=== PATIENT | female | born 1945 | race Caucasian/White ===

== ENCOUNTER → 2016-12-01 | Outpatient (CLI) | payer OTHER ==
[~2016-12-01] MED LIST: METH750T2 PO; MOBI15TA PO; SYNT88TA PO
[2016-12-01 09:48] LABS: HEMATOCRIT 37.6 % (35.0-46.0); MEAN CELL VOLUME 89.2 FL (80.0-100.0); MEAN CORPUSCULAR HEMOGLOBIN 30.2 PG (27.0-34.0); MEAN CORPUSCULAR HGB CONC 33.8 % (32.0-36.0); PLATELET COUNT 223 TH/MM3 (150-450); RED BLOOD COUNT 4.21 MIL/MM3 (4.00-5.30); RED CELL DISTRIBUTION WIDTH 14.2 % (11.6-17.2); REVIEW FLAG FINAL; WHITE BLOOD COUNT 6.4 TH/MM3 (4.0-11.0)
[2016-12-01 09:58] LABS: BICARBONATE 29.9 MEQ/L (21.0-32.0); POTASSIUM 3.8 MEQ/L (3.5-5.1)
== END ==
LOC: CLAB 08:52
PROVIDERS: ATTEND Family Medicine
DX: R55 Syncope and collapse (principal)
CPT/HCPCS: 36415; 80048; 85027

== ENCOUNTER → 2016-12-01 | Outpatient (CLI) | payer OTHER ==
--- NOTE | 2016-12-02 23:24 | HM ---
Date Performed: 12/01/2016 Time Performed: 07:42:00 HOOKUP DATE: 12/01/16 07:42:00 AM Tue ANALYSIS START TIME: 12/01/2016 7:47:00 AM ANALYSIS END TIME: 12/02/2016 7:30:11 AM PATIENT AGE: 71 PATIENT HEIGHT PATIENT WEIGHT DRUG LIST PATIENT DIAGNOSIS: SYNCOPE TEST NARRATIVE: The patient's average heart rate was 73 BPM. Heart rates greater than 120 B PM were noted < 1% of the time. No episodes of bradycardia were noted. No pauses exceeding 2.0 s econds were noted. No ventricular ectopics were noted. 25 supraventricular ectopics, which re presented < 1% of the total beat count, were noted. The highest supraventricular ectopic frequency o ccurred from 05:00 PM to 06:00 PM Tue. During this time 7 SVE(s) occurred. No episodes of ST dep ression (defined as -1.0 mm or more) were noted in channel 1. No episodes of ST depression (defined as -1.0 mm or more) were noted in channel 2. No episodes of ST depression (defined as -1.0 mm or mor e) were noted in channel 3. TEST INTERPRETATION: 1) Normal Sinus rhythm 2) No significant sinus tachycardia or bradycardia noted 3) No pauses noted 4) Rare PAC, with two ep isodes of short run of probable PAT 5) No episodes of ST depression are noted 6) Patient's symptoms o f dizziness correlate with normal sinus rhythm Signed by : Ayan Coronel
== END ==
LOC: HCAV 08:31
PROVIDERS: ATTEND Family Medicine
DX: R55 Syncope and collapse (principal)
CPT/HCPCS: 93225; 93226

== ENCOUNTER → 2016-12-29 | Outpatient (CLI) | payer OTHER ==
[2016-12-29 07:49] LABS: ALKALINE PHOSPHATASE 84 U/L (45-117); ALT (GPT) 19 U/L (10-53); ANION GAP 7 MEQ/L (5-15); AST (GOT) 19 U/L (15-37); BICARBONATE 29.2 MEQ/L (21.0-32.0); BLOOD UREA NITROGEN 23 MG/DL (7-18); CHLORIDE 102 MEQ/L (98-107); FREE T4 1.31 NG/DL (0.76-1.46); GLOMERULAR FILTRATION RATE 69 ML/MIN (>89); GLUCOSE,FASTING 76 MG/DL (74-99); HDL CHOLESTEROL 92.4 MG/DL (40.0-60.0); LDL CHOLESTEROL 86 MG/DL (0-99); POTASSIUM 3.9 MEQ/L (3.5-5.1); SODIUM (NA) 138 MEQ/L (136-145); TOTAL BILIRUBIN ADULT 0.5 MG/DL (0.2-1.0)
== END ==
LOC: CLAB 06:49
PROVIDERS: ATTEND Family Medicine
DX: I10 Essential (primary) hypertension (principal); E03.9 Hypothyroidism, unspecified
CPT/HCPCS: 36415; 80053; 80061; 84439; 84443